=== PATIENT | female | born 1980 | race Hispanic/Latino ===

== ENCOUNTER → 2024-05-01 | Outpatient (CLI) | payer BC | END | disposition home or self-care (01) | LOC: SHCH 14:55 | PROVIDERS: ATTEND Internal Medicine Cardiovascular Disease | DX: R00.0 Tachycardia, unspecified (principal) | CPT/HCPCS: 93306 ==

== ENCOUNTER → 2024-06-13 | Outpatient (CLI) | payer BC ==
[~2024-06-13] MED LIST: IOHEXOL 350 MG/ML 100ML INFUS..BTL IV ONE
--- NOTE | 2024-06-13 10:56 | HMCIMG ---
CT CHEST PE WWO REASON: RT HEART FAILURE TECHNIQUE: Thin axial images through the chest were obtained during bolus intravenous administration of 100 ml of Omnipaque 350. Sagittal and coronal reconstruction images were performed. FINDINGS: Lungs are clear. There are no focal masses or infiltrates. Heart size is normal. There is no pulmonary vascular congestion or pleural effusion. Contrast outlines normal appearing central pulmonary arteries. There is no CT evidence of PE. Aorta appears normal with no dissection or aneurysm. There is no hilar or mediastinal lymphadenopathy. Chest wall structures appear normal as do visualized upper abdominal IMPRESSION: 1. Negative PE protocol CT chest, no evidence of pulmonary embolism or aortic dissection. CT was performed with one or more following dose reduction techniques: automated exposure control, adjustment of the mA and kv according to patient's size, or use of a iterative reconstruction technique.
== END | disposition home or self-care (01) ==
LOC: RAH 09:47
PROVIDERS: ATTEND Internal Medicine Cardiovascular Disease
DX: I50.810 Right heart failure, unspecified (principal); R94.31 Abnormal electrocardiogram [ECG] [EKG]; R00.0 Tachycardia, unspecified
CPT/HCPCS: 71270; Q9967